=== PATIENT | female | born 1945 | race Caucasian/White ===

== ENCOUNTER → 2020-02-25 | Day surgery (SDC) | payer MEDICARE, BC ==
[~2020-02-25] MED LIST: Ketamine 200 MG/20 ML MDV IV ONE; Lactated Ringers 1,000 ML IV SCH; Midazolam 1 MG/ML 2 ML SDV IV ONE; Phenylephrine 1% 10 MG/ML SDV IV ONE; Propofol 200 MG/20 ML SDV IV ONE; fentaNYL 100 MCG/2 ML SDV IV ONE
[2020-02-25 11:22] VITALS: BP 137/77; PULSE 64
--- NOTE | 2020-02-25 13:43 | OR ---
DATE OF OPERATION: 02/25/2020 PREOPERATIVE DIAGNOSIS: 1. ABDOMINAL PAIN. 2. ALTERED BOWEL HABITS. POSTOPERATIVE DIAGNOSIS: 1. ABDOMINAL PAIN. 2. ALTERED BOWEL HABITS. SURGEON: Wayne Mack MD PROCEDURE: 1. EGD WITH BIOPSIES X2, ROSAS. 2. FULL-LENGTH COLONOSCOPY WITH BIOPSIES X2. ANESTHESIA: MAC. COMPLICATIONS: None. SPECIMEN: 1. Pyloric biopsy. 2. Antral biopsy. 3. Antral ROSAS. 4. Right-sided colon biopsies x2. FINDINGS: 1. Full-length diagnostic EGD. 2. Antral gastritis with peripyloric erosion/ulcer. 3. Full-length colonoscopy. 4. Diffuse significant melanosis coli. 5. Prominent internal hemorrhoids. RECOMMENDATIONS: Medical followup with [facility] pending path reports. INDICATIONS: The patient was in with complaints of her chronic abdominal pain and altered bowel habits. [facility] sent her for diagnostic upper and lower scopes. DESCRIPTION OF PROCEDURE: The patient was prepped and draped, placed in the left lateral decubitus position. A lubricated Olympus gastroscope was inserted over a bit, advanced to the cricopharyngeus area, and easily intubated into the esophagus. The esophageal lining was benign in its entire course. The Z-line was crisp at 40 cm. There was no spontaneous reflux seen. No distal esophagitis, stricturing, ulceration, or Almazan's changes. The scope was advanced into the stomach, through the pylorus, and into the second portion of the duodenum. This and the duodenal bulb were grossly benign. The scope was brought back into the stomach and retroflexed. The upper fundus and cardia were benign. Most of the fundus upon straightening was unremarkable. The antrum showed some active and moderate gastritis extending all the way to the pyloric area. There was a small little erosion along the pyloric channel, did do a biopsy of that and one of the antrum, along with a CLOtest. Air was then suctioned and the scope removed without complication. A lubricated Olympus colonoscope was then inserted and with relative ease advanced to the cecum. The patient had diffuse melanosis changes. Her bowel prep was wonderful, and she was very tortuous. We were able to get down and visualize the ileocecal valve and appendiceal orifice. Upon withdrawal, throughout the entire length of the colon, the patient had prominent and [id number] melanosis coli. Biopsies in the right side of the colon in the most affected area were taken. Throughout the rest of the colon, no polyps, masses, ulceration, or bleeding sites. No obvious vascular abnormalities or signs of polyp. The rectal vault appeared benign. Retroflexion confirmed prominent internal hemorrhoids. The air was then suctioned, scope removed without complication. CAMPBELL/SATYA /[id number]
== END ==
LOC: CC.SDS 07:52
PROVIDERS: ATTEND Family Medicine
DX: K63.89 Other specified diseases of intestine (principal); K64.8 Other hemorrhoids; K29.50 Unspecified chronic gastritis without bleeding; K25.9 Gastric ulcer, unspecified as acute or chronic, without hemorrhage or perforation; Q43.8 Other specified congenital malformations of intestine; F41.9 Anxiety disorder, unspecified; K21.9 Gastro-esophageal reflux disease without esophagitis; I25.10 Atherosclerotic heart disease of native coronary artery without angina pectoris; E78.5 Hyperlipidemia, unspecified; I10 Essential (primary) hypertension; G47.00 Insomnia, unspecified; G25.81 Restless legs syndrome; G43.909 Migraine, unspecified, not intractable, without status migrainosus; F17.200 Nicotine dependence, unspecified, uncomplicated; M79.7 Fibromyalgia; H65.111 Acute and subacute allergic otitis media (mucoid) (sanguinous) (serous), right ear; G89.29 Other chronic pain; N89.8 Other specified noninflammatory disorders of vagina; Z11.59 Encounter for screening for other viral diseases; Z88.2 Allergy status to sulfonamides; Z88.8 Allergy status to other drugs, medicaments and biological substances; Z79.82 Long term (current) use of aspirin; Z79.899 Other long term (current) drug therapy
CPT/HCPCS: 00813; 87081; 88305; 88342; J2250; J2370; J2704; J3010; J7120; U0002